=== PATIENT | male | born 1945 | race Caucasian/White ===

== ENCOUNTER 2025-01-24 14:45 | Inpatient (IN) | payer OTHER ==
[~2025-01-24] VITALS: Ht 170.1 cm; Wt 49.9 kg
[~2025-01-24 14:45] MED LIST: ADMELOG100 UNIT/1 SQ; ASPIRIN81 M1 PO; ATENOLOL50 M1 PO; ATIVAN0.5 MG PO; ATORVASTATIN CA40 M1 PO; CALMOSEPTINE OI71 GM T; CELEXA10 MG PO; DONEPEZIL HYDROC5 MG PO; DOXYCYCLINE HY100 M3 PO; EXELON1 EACH TD; IRON240 MG PO; IRON325 M1 PO; LASIX40 MG PO; LATANOPROST2.5 ML OP; LISINOPRIL10 M1 PO; MAGNESIUM250 M2 PO; MEMANTINE HCL10 MG PO; METFORMIN HYDR500 MG PO; MIRTAZAPINE15 M2 PO; OXYBUTYNIN5 MG PO; QUESTRAN LIGHT210 GM PO; RISPERDAL1 M1 PO; TAMSULOSIN HCL0.4 MG PO; TENORMIN25 MG PO; VANCOMYCIN HCL125 MG PO; VITAMIN B121000 MC3 PO; VITAMIN B12500 MC2 PO; VITAMIN D325 MCG PO; WARFARIN SODIUM1 MG PO; [UNRECOGNIZED DRUG - OTHER] T
[2025-01-24] MEDS ORDERED: LORazepam 1 MG TAB PO PRN (15:20)
[2025-01-24] MEDS ORDERED: MG-AL HYDROXIDE/SIMETICONE 30 ML UDC PO PRN (15:30)
[2025-01-24] MEDS ORDERED: ACETAMINOPHEN 325 MG TAB PO PRN (15:30)
[2025-01-24] MEDS ORDERED: Menthol/Zinc Oxide 4 GM THIN T PRN (15:35)
[2025-01-24] MEDS ORDERED: Mirtazapine 15 MG TAB PO SCH (21:00)
[2025-01-25 07:19] LABS: VITAMIN D, 25-HYDROXY 59.6 ng/mL (30-100)
[2025-01-25 07:20] LABS: LDL CHOLESTEROL 26 mg/dL (9-159)
[2025-01-25 07:21] LABS: VALPROIC ACID (DEPAKENE) < 3.0 ug/ml (50-100)
[2025-01-25] MEDS ORDERED: Rivastigmine Tartrate 4.6 MG/24 HR PATCH T SCH (09:00)
[2025-01-25] MEDS ORDERED: Vitamin D 1,000 IU TAB (25 MCG) PO SCH (09:00)
[2025-01-25] MEDS ORDERED: CYANOCOBALAMIN 500 MCG TAB PO SCH (09:00)
[2025-01-26] MEDS ORDERED: EXELON1 EAC1 TD (12:27)
[2025-01-26] MEDS ORDERED: VANCOMYCIN HCL125 MG PO (12:27)
[2025-01-26] MEDS ORDERED: LIPITOR40 MG PO (13:30)
[2025-01-26] MEDS ORDERED: FLOMAX0.4 MG PO (13:31)
[2025-01-26] MEDS ORDERED: ASPIRIN ADULT L81 M1 PO (13:32)
[2025-01-26] MEDS ORDERED: XALATAN 2.5 ML2.5 ML OP (13:34)
[2025-01-26] MEDS ORDERED: FERROUS GLUCON240 MG PO (13:35)
[2025-01-26] MEDS ORDERED: [UNRECOGNIZED DRUG - OTHER] T (13:40)
[2025-01-26] MEDS ORDERED: [UNRECOGNIZED DRUG - OTHER] T (13:41)
[2025-01-26] MEDS ORDERED: CHOLESTYRAMINE210 GM PO (13:42)
[2025-01-26] MEDS ORDERED: VISTARIL25 MG PO (13:47)
[2025-01-26 15:20] VITALS: BP 127/50
[2025-01-26] MEDS ORDERED: VANCOMYCIN HCL 125 MG CAPSULE PO SCH (17:00)
[2025-01-26 20:00] VITALS: BP 109/77
[2025-01-26] MEDS ORDERED: LATANOPROST 0.005% 2.5 ML BOTTLE OPH SCH (21:00)
[2025-01-26] MEDS ORDERED: Mirtazapine 15 MG TAB PO SCH (21:00)
[2025-01-26] MEDS ORDERED: ATORVASTATIN CALCIUM 40 MG TABLET PO SCH (21:00)
[2025-01-26] MEDS ORDERED: CHOLESTYRAMINE 4 GM PACKET PO SCH (22:00)
[2025-01-27 08:00] VITALS: BP 114/72
[2025-01-27] MEDS ORDERED: Rivastigmine Tartrate 9.5 MG/24 HR PATCH T SCH (09:00)
[2025-01-27] MEDS ORDERED: ASPIRIN, CHEWABLE 81 MG TAB PO SCH (09:00)
[2025-01-27] MEDS ORDERED: FERROUS GLUCONATE 324 MG TAB PO SCH (09:00)
[2025-01-27] MEDS ORDERED: Vitamin D 1,000 IU TAB (25 MCG) PO SCH (09:00)
[2025-01-27] MEDS ORDERED: CYANOCOBALAMIN 500 MCG TAB PO SCH (09:00)
[2025-01-27] MEDS ORDERED: MAGNESIUM 250 MG TAB PO SCH (09:00)
[2025-01-27 20:00] VITALS: BP 91/42
[2025-01-28] MEDS ORDERED: RIVASTIGMINE 13.3 MG/24 HR TDM T SCH (09:00)
[2025-01-28 20:00] VITALS: BP 131/89
[2025-01-29 07:53] VITALS: BP 140/70
[2025-01-29 20:00] VITALS: BP 107/91
[2025-01-30 07:55] VITALS: BP 106/87
[2025-01-30 20:00] VITALS: BP 102/56
[2025-01-31 08:07] VITALS: BP 106/52
[2025-01-31 20:00] VITALS: BP 135/82
[2025-02-01 07:29] LABS: BASO # 0.0 10*3/uL (0.0-0.1); BASO % 0.4 % (0.0-1.0); EOS # 0.1 10*3/uL (0.0-0.4); EOS % 0.8 % (1.0-4.0); MEAN CELL VOLUME 100.9 fl (80.0-94.0); MEAN CORPUSCULAR HGB 32.5 pg (27.0-31.0); MEAN PLATELET VOLUME 9.4 fl (9.6-12.3); MONO # 0.6 10*3/uL (0.1-1.0); MONO % 7.9 % (3.0-9.0); NEUT # 5.9 10*3/uL (2.3-7.9); NEUT % 74.4 % (47.0-73.0); NUCLEATED RED BLOOD CELL 0.0 % (0.0-0.0); NUCLEATED RED BLOOD CELL 0.0 10*3/uL (0.0-0.0); PLATELET COUNT AUTOMATED 203 10*3/uL (130-400); RED CELL DISTRI WIDTH 12.9 % (0-14.5)
[2025-02-01 08:00] VITALS: BP 101/46
[2025-02-01 08:18] LABS: BUN 21 mg/dl (9-23); SGPT/ALT 38 U/L (5-49)
[2025-02-01 20:00] VITALS: BP 103/48
[2025-02-01] MEDS ORDERED: RAMELTEON 8 MG TAB PO SCH (21:00)
[2025-02-02 08:00] VITALS: BP 112/49
[2025-02-02] MEDS ORDERED: RIVASTIGMINE1 EAC2 T (09:54)
[2025-02-02] MEDS ORDERED: MEMANTINE HCL10 MG PO (09:54)
[2025-02-02] MEDS ORDERED: HYDROXYZINE PAM25 M1 PO (09:54)
[2025-02-02] MEDS ORDERED: MIRTAZAPINE15 M2 PO (09:54)
[2025-02-02] MEDS ORDERED: RAMELTEON8 MG PO (09:54)
[2025-02-02 20:00] VITALS: BP 101/54
[2025-02-03 08:00] VITALS: BP 111/69
[2025-02-03 20:00] VITALS: BP 117/69
[2025-02-04 08:00] VITALS: BP 123/75
[2025-02-04 20:00] VITALS: BP 102/42
[2025-02-05 09:29] VITALS: BP 99/50
[2025-02-05 20:00] VITALS: BP 124/50
[2025-02-06 05:53] LABS: BUN 23 mg/dl (9-23); SGPT/ALT 34 U/L (5-49)
[2025-02-06 06:29] LABS: BASO # 0.0 10*3/uL (0.0-0.1); BASO % 0.5 % (0.0-1.0); EOS # 0.1 10*3/uL (0.0-0.4); EOS % 1.2 % (1.0-4.0); MEAN CELL VOLUME 100.9 fl (80.0-94.0); MEAN CORPUSCULAR HGB 32.2 pg (27.0-31.0); MEAN PLATELET VOLUME 9.6 fl (9.6-12.3); MONO # 0.7 10*3/uL (0.1-1.0); MONO % 10.9 % (3.0-9.0); NEUT # 4.3 10*3/uL (2.3-7.9); NEUT % 66.9 % (47.0-73.0); NUCLEATED RED BLOOD CELL 0.0 % (0.0-0.0); NUCLEATED RED BLOOD CELL 0.0 10*3/uL (0.0-0.0); PLATELET COUNT AUTOMATED 207 10*3/uL (130-400); RED CELL DISTRI WIDTH 13.2 % (0-14.5)
[2025-02-06 08:00] VITALS: BP 136/79
== END 2025-02-06 13:55 | DRG 883 ==
LOC: 3N 14:45
PROVIDERS: Counselor Professional; ADMIT Psychiatry & Neurology Psychiatry; ATTEND Psychiatry & Neurology Psychiatry
PROC: GZHZZZZ Group Psychotherapy (ICD-10-PCS; principal; 2025-02-01)
PROC: GZ56ZZZ Individual Psychotherapy, Supportive (ICD-10-PCS; 2025-02-01)
DX: F63.81 Intermittent explosive disorder (principal); E11.65 Type 2 diabetes mellitus with hyperglycemia; F33.2 Major depressive disorder, recurrent severe without psychotic features; A04.72 Enterocolitis due to Clostridium difficile, not specified as recurrent; E44.0 Moderate protein-calorie malnutrition; G30.9 Alzheimer's disease, unspecified; F02.80 Dementia in other diseases classified elsewhere, unspecified severity, without behavioral disturbance, psychotic disturbance, mood disturbance, and anxiety; N40.0 Benign prostatic hyperplasia without lower urinary tract symptoms; E78.5 Hyperlipidemia, unspecified; I10 Essential (primary) hypertension; D53.9 Nutritional anemia, unspecified; E87.6 Hypokalemia; E87.8 Other disorders of electrolyte and fluid balance, not elsewhere classified; Z82.49 Family history of ischemic heart disease and other diseases of the circulatory system; Z79.899 Other long term (current) drug therapy